=== PATIENT | female | born 1965 | race Caucasian/White ===

== ENCOUNTER 2024-04-17 12:23 | Outpatient (CLI) | payer BC, SELFPAY ==
--- NOTE | 2024-04-17 12:38 | ECG_ITS ---
[facility] Test Date: 2024-04-17 Pat Name: Claudia Brewer Department: Room: Gender: Female [employer] Attendant: : 1965 Requested By: Dong Alva Order Number: [id number] Miguel MD: Bandar Lima M.D. Interpretive Statements NAME OF STUDY: TREADMILL STRESS TEST INDICATION: EXERTIONAL SOB/CHEST PRESSURE, PROCEDURE: At the baseline, the patient's blood pressure was 126/83 with a heart rate of 97. The baseline electrocardiogram showed normal sinus rhythm with nonspecific T wave changes in the inferior leads.. The patient exercised for 5 minutes on a standard Joseluis protocol. Patient attained a maximum heart rate of 150 beats per minute(92% of the maximum predicted heart rate) with a blood pressure at the peak exercise of 165/74 mm Hg. The EKG at the peak exercise revealed no significant changes. Patient did not have any chest pain or any significant cardiac arrhythmias with the exercise During the recovery phase, there were no new changes. Blood pressure at the end of the recovery phase was 157/78 mm Hg with a heart rate of 93 per minute. CONCLUSION: 1. Normal EKG response to treadmill exercise 2. No exercise-induced chest pain or cardiac arrhythmia 3. Slightly impaired exercise tolerance, attained a maximum of 7.0 METs Electronically Signed On 04-19-2024 3:41:49 CDT by Bandar Lima M.D. [id number]
[2024-04-17 12:41] VITALS: BMI 32.5
[2024-04-17 13:13] VITALS: BP 157/78; PULSE 93
== END 2024-04-17 12:24 | disposition home or self-care (01) ==
PROVIDERS: Family Provider Nurse Practitioner Family; PCP Registered Nurse; Visit Provider Nurse Practitioner Family
DX: R06.02 Shortness of breath (principal)
CPT/HCPCS: 93017

== ENCOUNTER → 2024-05-03 16:16 | Outpatient (BNVA) | payer BC, SELFPAY | PROVIDERS: Family Provider Nurse Practitioner Family; PCP Registered Nurse; Visit Provider Nurse Practitioner Family | DX: I10 Essential (primary) hypertension (principal) | CPT/HCPCS: 84443 ==